=== PATIENT | female | born 1965 | race Caucasian/White ===

== ENCOUNTER 2016-09-26 17:52 | Inpatient (IN) ==
[2016-09-26 18:48] LABS: MANUAL DIFF NEEDED? NO
[2016-09-26 18:54] LABS: BASO% 0.4 % (0.0-0.8); EOS# 0.23 X1000 (0.0-0.7); EOS% 2.1 % (0.0-10.0); HEMATOCRIT 32.2 % (37.0-47.0); HEMOGLOBIN 11.4 g/dL (12.0-16.0); IMM GRAN# 0.02 X1000 (0.0-0.04); IMM GRAN% 0.2 % (0.0-0.5); LYMPH# 1.49 X1000 (1.2-3.4); LYMPH% 13.8 % (20.5-51.1); MCH 30.6 PG (27-31); MCHC 35.4 g/dL (33-37); MCV 86.6 FL (81-99); MONO# 0.61 X1000 (0.11-0.59); MONO% 5.6 % (1.7-9.3); MPV 10.1 FL (7.4-10.4); NEUT% 77.9 % (42.2-75.2); PLT 355 X1000 (130-400); RBC 3.72 XMIL (4.2-5.4)
[2016-09-26 19:04] LABS: INR 0.99; PROTIME 10.4 Seconds (9.2-11.7); PTT 30.2 Seconds (22.0-36.0)
[2016-09-26 19:17] LABS: ALBUMIN 3.8 g/dL (3.5-5.0); CALCIUM 8.2 mg/dL (8.8-10.2); POTASSIUM 3.3 mmol/L (3.5-5.1); TOTAL BILIRUBIN 0.19 mg/dL (0.20-1.00); TOTAL PROTEIN 6.4 g/dL (6.3-8.3)
[2016-09-26 19:43] LABS: CK INDEX 3.2 (0.0-2.5); CK-MB 95.41 ng/mL (0.0-5.0)
[2016-09-26] MEDS ORDERED: NARCAN IV ONE ×2 (20:55→21:58)
[2016-09-26 22:09] LABS: URINE MICRO REVIEW NEEDED? NO; URINE SOURCE CATH
[2016-09-26 22:14] LABS: BILIRUBIN URINE NEGATIVE (NEGATIVE); BLOOD URINE MODERATE (NEGATIVE); COLOR YELLOW; GLUCOSE URINE NEGATIVE (NEGATIVE); LEUKOCYTES URINE LARGE (NEGATIVE); NITRITE URINE NEGATIVE (NEGATIVE); PH URINE 5.5; PROTEIN URINE 30 mg/dL (NEGATIVE); SP GRAVITY URINE 1.017; TURBIDITY URINE HAZY (CLEAR); UR EPITHELIAL CELLS >10 /HPF (<10); URINE BACTERIA 1+ /HPF; URINE CULTURE NEEDED? YES; URINE RBC <10 /HPF (<10); UROBILINOGEN URINE NORMAL (NORMAL)
[2016-09-26 22:26] LABS: UR AMPHETAMINES QUAL NONE DETECTED (NONE DETECT); UR BARBITUATES QUAL NONE DETECTED (NONE DETECT); UR BENZODIAZEPIN QUAL NONE DETECTED (NONE DETECT); UR CANNABINOIDS QUAL NONE DETECTED (NONE DETECT); UR COCAINE QUAL NONE DETECTED (NONE DETECT); UR METHADONE QUAL NONE DETECTED (NONE DETECT); UR OPIATES QUAL NONE DETECTED (NONE DETECT); UR OXYCODONE QUAL PRESUMPTIVE POSITIVE (NONE DETECT); UR PCP QUAL NONE DETECTED (NONE DETECT)
[2016-09-26] MEDS ORDERED: ROCEPHIN 1 GM/NS 1 GM/50 ML IVPB IV ONE (23:04)
--- NOTE | 2016-09-27 00:02 | HISTORY AND PHYSICAL ---
PRIMARY CARE PHYSICIAN: Dr. Jian Donohue. CHIEF COMPLAINT: Mental status changes. HISTORY OF PRESENTING ILLNESS: A 51-year-old female with a history of chronic anemia, hypertension and a cystocele, who had presented to the emergency department after family members found her sitting on the chair somewhat confused. She was very disoriented and not making any sense, as per family members. She was brought to the emergency department. She was started on some IV fluids, and she had some improvement, and due to her presenting symptoms, it was thought that she would need hospitalization for further management. At the time of my examination, she was more alert and she was more responding appropriately, but she was still lethargic. She had denied having any fevers, chills, chest pain, shortness of breath, hemoptysis, melena or weight changes. The patient apparently had been on pain medications at home, and initially she was given Narcan in the ER, due to suspicion that she may have took extra doses of her medicines or so, resulting in her confusion. PAST MEDICAL HISTORY: Includes degenerative disk disease, chronic anemia, cystocele, hypertension. PAST SURGICAL HISTORY: Gastric bypass, liposuction, cholecystectomy. ALLERGIES: No known drug allergies. CURRENT MEDICATIONS: Listed in the MAR. SOCIAL HISTORY: She denies any history of smoking, alcohol or illicit drug use. FAMILY HISTORY: No history of coronary disease. REVIEW OF SYSTEMS: Twelve point systems is as in HPI. Other systems negative. PHYSICAL EXAMINATION: GENERAL: Cooperative, friendly female. She is resting comfortably now. VITAL SIGNS: Temperature 98.1, pulse 89, respiration 18, blood pressure 107/50. HEENT: Atraumatic, normocephalic. Extraocular movements intact. PERRLA. NECK: Supple. CHEST: Clear to auscultation. CARDIOVASCULAR: Regular rate and rhythm. ABDOMEN: Soft. Positive bowel sounds. EXTREMITIES: No edema. NEURO: She is awake, alert, oriented x2. : No bladder distention. SKIN: Warm. LABORATORIES AND STUDIES: WBC 10.81, hemoglobin 11.4, hematocrit 32.2, platelets is 355,000. Sodium 126, potassium 3.3, chloride 79, CO2 is 20, BUN is 52, creatinine 3.8, glucose is 97. CPK is 2,942. UA shows large leukocytes and bacteria. Toxicology screen is positive for oxycodone. ASSESSMENT: A 51-year-old female with a history of chronic anemia and hypertension, who was brought to the emergency department due to worsening confusion. She was evaluated in the ER, initially it was thought that she may have taken an overdose on her oxycodone. She was given Narcan. She had some improvement. However she still was somewhat lethargic, and due to her presenting symptoms, it was thought that she would need hospitalization for further management. 1. Altered mental status, multifactorial etiology. 2. Suspected opiate overdose. 3. Acute rhabdomyolysis. 4. UTI. 5. Acute kidney injury. 6. Hyponatremia. PLAN: 1. We will admit patient to medical floor with telemetry. 2. We will continue with neuro checks. 3. We will give patient IV fluids, antiemetics. 4. We will check urine cultures. Start patient on IV antibiotics. 5. We will monitor renal function. 6. We will trend her CPK's. 7. Monitor electrolytes. 8. We will put patient on DVT prophylaxis with LALA hose. 9. We will continue to follow and reassess. cc: Roland Baron MD
[2016-09-27] MEDS ORDERED: ROCEPHIN 1 GM/NS 1 GM/50 ML IVPB IV SCH (00:05)
[2016-09-27] MEDS ORDERED: ZOFRAN IV PRN ×2 (00:05→13:49)
[2016-09-27] MEDS ORDERED: NS 1,000 ML IV ONE ×2 (00:39)
--- NOTE | 2016-09-27 01:00 | PROVIDER DOCUMENTATION ---
This chart was entered by Shirin West Scribe, acting as scribe for Ray Jaquez MD. HPI-General Adult - General Chief Complaint: General Adult Stated Complaint: TWITCHING Time Seen by Provider: 09/26/16 20:21 Source: patient, family Allergies/Adverse Reactions: Patient Allergies Allergy/AdvReac Type Severity Reaction Status Date / Time No Known Allergies Allergy Verified 05/09/15 16:57 Home Medications: Home Medication List Medication Instructions Recorded Confirmed Last Taken Type Citalopram [Celexa] 40 mg PO DAILY 09/26/16 09/26/16 Unknown History Lisinopril/Hydrochlorothiazide 1 each PO QAM 09/26/16 09/26/16 Unknown History [Lisinopril-Hctz 20-25 mg Tab] Omeprazole 40 mg PO QAM 09/26/16 09/26/16 Unknown History Oxycodone HCl 30 mg PO Q4H PRN PRN 09/26/16 09/26/16 Unknown History - History of Present Illness -Gen Adult Nature of Presenting Problems: 51 year old F presents to the ED with a cc of twitching and unable to hold hands up with an onset of [employer]. Pt states that this has happened before. Mother states that pt is talking out of her head. Location of Pain/Injury: reports: upper extremity, hand(s) Pain Radiation: reports: no radiation Quality of Pain: reports: none Severity: reports: mild Onset/Duration: reports: just prior to arrival Timing: reports: still present Context/Activities at Onset: reports: none Modifying Factors: improves with: nothing Similar Symptoms Previously?: Yes Recently seen or treated by another doctor?: No Review of Systems - Adult - REVIEW OF SYSTEMS - ADULT Constitutional: denies: chills, fever Eyes: reports: no symptoms reported Ears, Nose, Mouth & Throat: reports: no symptoms reported Cardiovascular: reports: no symptoms reported Respiratory: reports: no symptoms reported Gastrointestinal: reports: no symptoms reported Genitourinary: reports: no symptoms reported Musculoskeletal: denies: muscle aches, muscle weakness Integumentary: denies: skin sores/ulcer, skin thickening Neurological: reports: no symptoms reported Psychiatric: reports: no symptoms reported Endocrine: reports: no symptoms reported Hematologic/Lymphatic: reports: no symptoms reported Allergic/Immunologic: reports: no symptoms reported All Other Systems: Reviewed and Negative Past History - Adult - PAST MEDICAL HISTORY-ADULT Review of Records: reports: Nursing Assessment Review, Medications Reviewed Major Childhood Illnesses: reports: denies history Cardiovascular: reports: CHF, HTN Respiratory: reports: asthma, COPD Gastrointestinal: reports: GERD, ulcer Obstetrical/Gynecological: reports: denies history Genitourinary: reports: denies history Musculoskeletal: reports: chronic pain (neck and back pain) Neurological: reports: denies history Endocrine/Immune: reports: denies history Other Conditions: reports: denies history - PRIOR SURGERIES/PROCEDURES Surgical/Procedure History: reports: cholecystectomy, BTL, other (liposuction, tummy tuck, gastric bypass) - IMMUNIZATION STATUS Childhood Immunizations: See Nurse Assessment Flu Vaccine: See Nurse Assessment - FAMILY HISTORY Family History: reviewed, not pertinent - SOCIAL HISTORY Smoking: non-smoker Substance Use: none/never Alcohol Use Frequency: never Physical Exam-General - PHYSICAL EXAM-ADULT Initial Vital Signs Reviewed: Yes - CONSTITUTIONAL General Appearance: lethargic (but oriented x3), other (twitching) - RESPIRATORY Respiratory: chest non-tender, lungs clear, normal breath sounds - CARDIOVASCULAR Cardiovascular: normal peripheral pulses, regular rate, rhythm, no edema - GASTROINTESTINAL (ABDOMEN) Abdominal Exam: non tender, soft - SKIN Integumentary: normal color, normal turgor, warm/dry - PSYCHIATRIC Psych/Mental Status: oriented x 3 Progress - PLAN OF CARE/RESULTS Progress/Plan/Lab Results: Vital Signs - 8 hr 09/26/16 18:05 Temperature 98.0 F Pulse Rate 89 Respiratory Rate 18 Blood Pressure 107/50 O2 Sat by Pulse Oximetry 96 Laboratory Results - last 24 hr 09/26/16 09/26/16 09/26/16 18:48 18:48 18:48 WBC 10.81 H RBC 3.72 L Hgb 11.4 L Hct 32.2 L MCV 86.6 MCH 30.6 MCHC 35.4 RDW Std Deviation 12.8 Plt Count 355 MPV 10.1 Immature Gran % (Auto) 0.2 Neut % (Auto) 77.9 H Lymph % (Auto) 13.8 L Carroll % (Auto) 5.6 Eos % (Auto) 2.1 Baso % (Auto) 0.4 Immature Gran # (Auto) 0.02 Neut # (Auto) 8.42 H Lymph # (Auto) 1.49 Carroll # (Auto) 0.61 H Eos # (Auto) 0.23 Baso # (Auto) 0.04 PT INR PTT (Actin FS) Sodium 126 L Potassium 3.3 L Chloride 79 L Carbon Dioxide 20 L Anion Gap 27 BUN 52 H Creatinine 3.8 H Estimated GFR/1.73 m2 12 BUN/Creatinine Ratio 14 Glucose 97 Calculated Osmolality 267 Calcium 8.2 L Total Bilirubin 0.19 L AST 73 H ALT 32 Alkaline Phosphatase 84 Creatine Kinase 2942 H Creatine Kinase Index 3.2 H CK-MB (CK-2) 95.41 H Troponin T Total Protein 6.4 Albumin 3.8 Globulin 2.6 Albumin/Globulin Ratio 1.5 Plasma/Serum Ethyl Alc 09/26/16 09/26/16 18:48 18:48 WBC RBC Hgb Hct MCV MCH MCHC RDW Std Deviation Plt Count MPV Immature Gran % (Auto) Neut % (Auto) Lymph % (Auto) Carroll % (Auto) Eos % (Auto) Baso % (Auto) Immature Gran # (Auto) Neut # (Auto) Lymph # (Auto) Carroll # (Auto) Eos # (Auto) Baso # (Auto) PT 10.4 INR 0.99 PTT (Actin FS) 30.2 Sodium Potassium Chloride Carbon Dioxide Anion Gap BUN Creatinine Estimated GFR/1.73 m2 BUN/Creatinine Ratio Glucose Calculated Osmolality Calcium Total Bilirubin AST ALT Alkaline Phosphatase Creatine Kinase Creatine Kinase Index CK-MB (CK-2) Troponin T 0.074 Total Protein Albumin Globulin Albumin/Globulin Ratio Plasma/Serum Ethyl Alc Orders Category Date Time Status CHEST-PORTABLE [RAD] Stat Exams 09/26/16 20:53 Ordered ALCOHOL BLOOD Stat Lab 09/26/16 18:48 Completed CBC WITH ELECTRONIC DIFF [HEME] Stat Lab 09/26/16 18:48 Completed CK PROFILE [SP CHEM] Stat Lab 09/26/16 18:48 Completed COMPREHENSIVE METABOLIC PANEL [CHEM] Stat Lab 09/26/16 18:48 Completed PROTIME WITH INR [COAG] Stat Lab 09/26/16 18:48 Completed PTT [COAG] Stat Lab 09/26/16 18:48 Completed TROPONIN T Stat Lab 09/26/16 18:48 Completed Result Diagrams: 09/26/16 18:48 09/26/16 18:48 - CT/MRI 1 CT Study: Head Impression: Normal CT Results: No blood, negative exam: Dr. Cowart(radiologist) - CONSULTS/PCP/HOSPITALIST Notification #1 *Consult/PCP/Hospitalist*: Dr. Baron(hospitalist) Time Discussed: 23:01 Consult Disposition: Will see in ED, Admit Departure - Departure Time of Disposition Decision: 00:57 DIAGNOSIS: Acute kidney injury Altered mental status Qualifiers: Altered mental status type: disorientation Qualified Code(s): R41.0 - Disorientation, unspecified Disposition: ADMITTED INPATIENT 09 Certified Medical Emergency: Emergent Condition: Fair This chart was documented by the indicated scribe, (Shirin West Scribe) and accurately reflects the services I performed and decisions made by me, Ray Jaquez MD, as attested by the provider's signature.
[2016-09-27 06:29] LABS: MANUAL DIFF NEEDED? NO
--- NOTE | 2016-09-27 06:29 | Diag Imaging Result Document ---
PROCEDURE NAME: HEAD W/O CONTRAST - 09/26/2016 CT BRAIN WITHOUT CONTRAST: COMPARISON: Compared to 02/06/2012. FINDINGS: No parenchymal hemorrhage. No epidural or subdural hematoma. No subarachnoid hemorrhage. No mass identified on this noncontrasted exam. No hydrocephalus. No sinus opacification. No air fluid levels. IMPRESSION: No hemorrhage. Negative brain CT without contrast . A preliminary report was given at 10:41 p.m.
[2016-09-27 06:33] LABS: BASO% 0.5 % (0.0-0.8); EOS# 0.09 X1000 (0.0-0.7); EOS% 1.4 % (0.0-10.0); HEMATOCRIT 28.6 % (37.0-47.0); HEMOGLOBIN 10.1 g/dL (12.0-16.0); LYMPH# 0.87 X1000 (1.2-3.4); LYMPH% 13.7 % (20.5-51.1); MCH 30.7 PG (27-31); MCHC 35.3 g/dL (33-37); MCV 86.9 FL (81-99); MONO% 9.4 % (1.7-9.3); MPV 9.6 FL (7.4-10.4); PLT 320 X1000 (130-400); RBC 3.29 XMIL (4.2-5.4)
[2016-09-27 07:14] LABS: CK INDEX 2.8 (0.0-2.5); CK-MB 39.76 ng/mL (0.0-5.0)
--- NOTE | 2016-09-27 08:00 | Diag Imaging Result Document ---
PROCEDURE NAME: CHEST-PORTABLE - 09/26/2016 SINGLE FRONTAL RADIOGRAPH OF THE CHEST: COMPARISON: 11/09/2014. FINDINGS: There is stable elevation of the right hemidiaphragm. There is suggestion of mild subsegmental atelectasis at the right lung base. The lungs are grossly clear, otherwise. There appears to be a prominent hiatal hernia that is stable. Cardiac silhouette may be borderline prominent, probably due to magnification from AP technique. Central vasculature is unremarkable. There is stable scoliosis. IMPRESSION: 1. Suggestion of mild right basilar subsegmental atelectasis. 2. Stable hiatal hernia.
[2016-09-27] MEDS: NS 1,000 ML IV SCH ×2 (08:15→17:43)
[2016-09-27] MEDS ORDERED: PRILOSEC PO SCH (09:00)
[2016-09-27] MEDS ORDERED: CELEXA PO SCH (09:00)
[2016-09-27] MEDS ORDERED: NS 1,000 ML IV SCH (09:59)
[2016-09-27 12:14] VITALS: BP 113/60
[2016-09-27] MEDS ORDERED: TYLENOL PO PRN (13:49)
[2016-09-27] MEDS ORDERED: OXY IR PO PRN (13:50)
--- NOTE | 2016-09-27 14:11 | PROGRESS NOTE ---
DATE: 09/27/2016 SUBJECTIVE: Patient has focal complaints. OBJECTIVE: Vital Signs: 113/60, heart rate 97, respiratory rate of 12, temperature 98.6. Cardiovascular: Regular rate and rhythm. Pulmonary: Bilateral breath sounds. Clear to auscultation. GI: Soft, nontender, nondistended. Bowel sounds are positive. Extremities: No clubbing or cyanosis. Lymphatics: No peripheral edema. Neurological: Nonfocal. LABORATORY DATA: CPK is still 1409, that is an improvement. Hemoglobin and hematocrit is 10 and 28 with normal indices, normal white count. PROBLEM LIST: 1. Encephalopathy, I think that is basically resolved. 2. Acute kidney injury. Continue hydration and monitor closely. Repeat labs are pending. 3. Rhabdomyolysis. We will continue normal saline infusion. I would consider bicarbonate, but her potassium is already low. I am worried about worsening that condition, so we will follow. 4. Questionable urinary tract infection. Micro so far is negative. Will continue to monitor. DISPOSITION: Possibly home later today versus a.m. pending her labs. cc: Romulo Grijalva MD
[2016-09-27 16:01] LABS: AGAP 13; BUN 31 mg/dL (8-22); CALCIUM 8.5 mg/dL (8.8-10.2); CHLORIDE 96 mmol/L (98-107); COSMO 272; POTASSIUM 2.9 mmol/L (3.5-5.1); SODIUM 130 mmol/L (136-145); TCO2 21 mmol/L (25-35)
[2016-09-27] MEDS ORDERED: KLOR-CON PO ONE (16:43)
--- NOTE | 2016-09-29 06:39 | DISCHARGE SUMMARY ---
ADMISSION DATE: 09/27/2016 DISCHARGE DATE: 09/27/2016 DISCHARGE DIAGNOSIS: 1. Rhabdomyolysis. 2. Acute kidney injury. 3. Encephalopathy. 4. Possible UTI. HISTORY: Briefly, this is a 51-year-old female coming in with confusion. She is on multiple medications that may cause confusion including opiates. She was admitted and placed on IV fluids. Her initial creatinine was 3.8 with a sodium 126 and potassium was 3.3. She was placed on hydration. Creatinine normalized the following day to 0.9 and potassium was still low at 2.9. Sodium was 130. Patient was given supplementary potassium. She was very motivated to go home. She did get up and around. She was discharged in stable condition. DISCHARGE MEDICATIONS: 1. Celexa 40 daily. 2. Prilosec 40 daily. 3. OxyIR 30 p.o. q.4 p.r.n. pain. FOLLOW UP: She will need to follow up with her PCP in 1-2 weeks. No PCP listed though. cc: Romulo Grijalva MD
== END 2016-09-27 19:50 | disposition home or self-care (01) ==
LOC: ED 17:52 → SUATTDRO 09-27 00:31 → 3N 09-27 00:31
PROVIDERS: ATTEND Internal Medicine